=== PATIENT | male | born 1960 | race Caucasian/White ===

== ENCOUNTER 2025-01-04 16:26 | Inpatient (IN) | payer MEDICARE, MEDICAID ==
[~2025-01-04] VITALS: Ht 175.3 cm; Wt 86.4 kg
[~2025-01-04 16:26] MED LIST: BUPR-50 PO; BUSP5TAB20 PO; PANT-31 PO; QUET300T2 PO; TAMS0.4C94 PO
[2025-01-04] MEDS ORDERED: TRAZ-257 PO (17:32)
[2025-01-04] MEDS ORDERED: BUPR-49 PO (17:38)
[2025-01-04] MEDS ORDERED: LOSA-381 PO (17:38)
[2025-01-04] MEDS ORDERED: PANT40TA54 PO (17:38)
[2025-01-04] MEDS ORDERED: BUSP5TAB3 PO (17:38)
[2025-01-04] MEDS: QUEtiapine FUMARATE 100 MG TABLET PO ONE (17:55)
[2025-01-04] MEDS: LORazepam 2 MG TABLET PO ONE (17:55)
[2025-01-04] MEDS: DiphenhydrAMINE HCL 25 MG CAPSULE PO ONE (17:55)
[2025-01-04 18:16] LABS: BASOPHILS % (AUTO) 0.6 % (0.0-2.0); EOSINOPHILS % (AUTO) 3.5 % (1.0-6.0); HEMATOCRIT 43.5 % (41-53); HEMOGLOBIN 14.8 g/dL (13.5-17.5); LYMPHOCYTES # (AUTO) 1.5 K/uL (1.0-4.8); LYMPHOCYTES % (AUTO) 16.9 % (22.0-44.0); MEAN CORPUSCULAR HEMOGLOBIN 30.2 pg (26.0-34.0); MEAN CORPUSCULAR VOLUME 89 fL (80-100); MONOCYTES # (AUTO) 0.7 K/uL (0.1-1.0); MONOCYTES % (AUTO) 8.5 % (2.0-9.0); NEUTROPHILS # (AUTO) 6.1 K/uL (1.8-7.7); NEUTROPHILS % (AUTO) 70.5 % (40.0-70.0); PLATELET COUNT (AUTO) 283 K/uL (150-450); RED BLOOD CELL COUNT(AUTO) 4.89 MIL/uL (4.50-5.90); RED CELL DISTRIBUTION WIDTH 14.5 % (11.5-14.5); WHITE BLOOD COUNT (AUTO) 8.6 K/uL (4.5-11.0)
[2025-01-04 18:18] LABS: CALCIUM, TOTAL 9.5 mg/dL (8.8-10.5); CREATININE 3.17 mg/dL (0.60-1.30); POTASSIUM 3.6 mmol/L (3.5-5.1)
[2025-01-04] MEDS ORDERED: ONDANSETRON HCL 4 MG/2 ML VIAL IVP PRN (19:15)
[2025-01-04] MEDS: SODIUM CHLORIDE 0.9% 2,000 ML IV ONE (20:26)
[2025-01-04] MEDS: DOCUSATE SODIUM 100 MG CAPSULE PO SCH (21:00)
[2025-01-04 21:20] VITALS: BP 126/93; PULSE 84; RESP 20; TEMP 97.5; O2SAT 96
[2025-01-04] MEDS: SODIUM CHLORIDE 0.9% 1,000 ML IV SCH (22:48)
[2025-01-04] MEDS: HEPARIN SODIUM,PORCINE 5,000 UNITS/ML VIAL SQ SCH (23:20)
[2025-01-05] MEDS: RINGERS SOLUTION,LACTATED 500 ML IV ONE (00:18)
[2025-01-05 01:01] LABS: LACTIC ACID 1.3 mmol/L (0.4-2.0)
[2025-01-05] MEDS: PIPERACILLIN SODIUM/TAZOBACTAM 2.25 GM in DEXTROSE 5%-WATER 50 ML IV SCH (01:42)
[2025-01-05 04:30] VITALS: BP 98/69; PULSE 77; RESP 18; TEMP 97.7; O2SAT 97
[2025-01-05 07:21] LABS: BASOPHILS % (AUTO) 0.6 % (0.0-2.0); EOSINOPHILS % (AUTO) 9.4 % (1.0-6.0); HEMATOCRIT 39.2 % (41-53); HEMOGLOBIN 13.1 g/dL (13.5-17.5); LYMPHOCYTES # (AUTO) 1.7 K/uL (1.0-4.8); MEAN CORPUSCULAR HEMOGLOBIN 29.9 pg (26.0-34.0); MEAN CORPUSCULAR HGB CONC 33.3 G/dL (31.0-37.0); MEAN CORPUSCULAR VOLUME 90 fL (80-100); MONOCYTES # (AUTO) 0.6 K/uL (0.1-1.0); MONOCYTES % (AUTO) 10.4 % (2.0-9.0); NEUTROPHILS # (AUTO) 2.8 K/uL (1.8-7.7); NEUTROPHILS % (AUTO) 49.6 % (40.0-70.0); PLATELET COUNT (AUTO) 238 K/uL (150-450); RED BLOOD CELL COUNT(AUTO) 4.38 MIL/uL (4.50-5.90); RED CELL DISTRIBUTION WIDTH 14.3 % (11.5-14.5); WHITE BLOOD COUNT (AUTO) 5.6 K/uL (4.5-11.0)
[2025-01-05 07:26] LABS: CALCIUM, TOTAL 8.3 mg/dL (8.8-10.5); CREATININE 2.04 mg/dL (0.60-1.30); POTASSIUM 3.4 mmol/L (3.5-5.1)
[2025-01-05 08:16] VITALS: BP 129/83; PULSE 81; RESP 18; TEMP 97.8; O2SAT 99
[2025-01-05 09:00] VITALS: BP 125/82; PULSE 85; RESP 16; TEMP 97.7; O2SAT 100
[2025-01-05] MEDS: BuPROPion HCL XL 150 MG ER TABLET PO SCH (12:28)
[2025-01-05] MEDS: BusPIRone HCL 5 MG TABLET PO SCH (16:34)
[2025-01-05 18:48] LABS: CREATININE,URINE RANDOM 199.3 mg/dL (30.0-125.0); PH,URINE DRUG SCREEN 5.5 (5.0-8.0)
[2025-01-05 18:54] LABS: ALCOHOL, URINE DRUG SCREEN NEGATIVE (NEGATIVE); AMPHET/METH SCREEN,URINE POSITIVE (NEGATIVE); BARBITURATE SCREEN, URINE NEGATIVE (NEGATIVE); BENZODIAZEPINES SCREEN,URINE NEGATIVE (NEGATIVE); CANNABINOID SCREEN,URINE NEGATIVE (NEGATIVE); COCAINE SCREEN,URINE NEGATIVE (NEGATIVE); METHADONE SCREEN, URINE NEGATIVE (NEGATIVE); OPIATE SCREEN,URINE NEGATIVE (NEGATIVE); PHENCYCLIDINE SCREEN,URINE NEGATIVE (NEGATIVE)
[2025-01-05 20:09] VITALS: BP 119/78; PULSE 79; RESP 20; TEMP 97.5; O2SAT 97
[2025-01-05] MEDS: TraZODone HCL 100 MG TABLET PO SCH (21:27)
[2025-01-05] MEDS: QUEtiapine FUMARATE 300 MG TABLET PO SCH (21:27)
[2025-01-06 06:08] VITALS: BP 136/81; PULSE 65; RESP 20; TEMP 97.3; O2SAT 95
[2025-01-06 08:02] VITALS: BP 119/80; PULSE 74; RESP 18; TEMP 97.9; O2SAT 96
[2025-01-06] MEDS: MORPHINE SULFATE 2 MG/ML SYRINGE IVP PRN (16:08)
[2025-01-06 19:43] VITALS: BP 113/64; PULSE 78; RESP 18; TEMP 97.7; O2SAT 95
[2025-01-06] MEDS: ACETAMINOPHEN 325 MG TABLET PO PRN (19:54)
[2025-01-06 23:23] VITALS: BP 130/72; PULSE 70; RESP 18; TEMP 97.6; O2SAT 98
[2025-01-07 07:20] LABS: BASOPHILS % (AUTO) 0.9 % (0.0-2.0); EOSINOPHILS % (AUTO) 11.6 % (1.0-6.0); HEMATOCRIT 35.9 % (41-53); HEMOGLOBIN 11.9 g/dL (13.5-17.5); LYMPHOCYTES # (AUTO) 1.9 K/uL (1.0-4.8); LYMPHOCYTES % (AUTO) 46.7 % (22.0-44.0); MEAN CORPUSCULAR HEMOGLOBIN 29.9 pg (26.0-34.0); MEAN CORPUSCULAR HGB CONC 33.2 G/dL (31.0-37.0); MEAN CORPUSCULAR VOLUME 90 fL (80-100); MONOCYTES # (AUTO) 0.5 K/uL (0.1-1.0); NEUTROPHILS # (AUTO) 1.2 K/uL (1.8-7.7); NEUTROPHILS % (AUTO) 29.8 % (40.0-70.0); PLATELET COUNT (AUTO) 216 K/uL (150-450); RED BLOOD CELL COUNT(AUTO) 3.98 MIL/uL (4.50-5.90); RED CELL DISTRIBUTION WIDTH 14.7 % (11.5-14.5); WHITE BLOOD COUNT (AUTO) 4.1 K/uL (4.5-11.0)
[2025-01-07 07:29] LABS: ANION GAP 6 mmol/L (8-16); CALCIUM, TOTAL 8.4 mg/dL (8.8-10.5); CARBON DIOXIDE 27 mmol/L (22-29); CHLORIDE 108 mmol/L (98-107); CREATININE 0.85 mg/dL (0.60-1.30); GLOMERULAR FILTR. RATE CALC > 60 mL/min (>60); GLUCOSE,RANDOM 85 mg/dL (70-110); POTASSIUM 4.1 mmol/L (3.5-5.1); SODIUM SERUM 141 mmol/L (136-145); UREA NITROGEN, BLOOD 27 mg/dL (7-18)
[2025-01-07 07:34] VITALS: BP 110/64; PULSE 66; RESP 18; TEMP 97.5; O2SAT 100
[2025-01-07 15:07] VITALS: BP 138/97; PULSE 61; RESP 18; TEMP 97.7; O2SAT 98
[2025-01-07 20:18] VITALS: BP 147/84; PULSE 66; RESP 20; TEMP 97.5; O2SAT 96
[2025-01-07] MEDS: BENZONATATE 100 MG CAPSULE PO PRN (22:35)
[2025-01-08 04:29] VITALS: BP 142/96; PULSE 75; RESP 18; TEMP 97.9; O2SAT 97
[2025-01-08 07:43] LABS: BASOPHILS % (AUTO) 0.7 % (0.0-2.0); EOSINOPHILS % (AUTO) 8.8 % (1.0-6.0); HEMATOCRIT 38.9 % (41-53); HEMOGLOBIN 12.7 g/dL (13.5-17.5); LYMPHOCYTES # (AUTO) 1.8 K/uL (1.0-4.8); LYMPHOCYTES % (AUTO) 31.9 % (22.0-44.0); MEAN CORPUSCULAR HEMOGLOBIN 29.8 pg (26.0-34.0); MEAN CORPUSCULAR HGB CONC 32.8 G/dL (31.0-37.0); MEAN CORPUSCULAR VOLUME 91 fL (80-100); MONOCYTES # (AUTO) 0.4 K/uL (0.1-1.0); MONOCYTES % (AUTO) 7.4 % (2.0-9.0); NEUTROPHILS # (AUTO) 2.9 K/uL (1.8-7.7); NEUTROPHILS % (AUTO) 51.2 % (40.0-70.0); PLATELET COUNT (AUTO) 234 K/uL (150-450); RED BLOOD CELL COUNT(AUTO) 4.27 MIL/uL (4.50-5.90); RED CELL DISTRIBUTION WIDTH 14.5 % (11.5-14.5); WHITE BLOOD COUNT (AUTO) 5.7 K/uL (4.5-11.0)
[2025-01-08 08:02] LABS: ANION GAP 5 mmol/L (8-16); CALCIUM, TOTAL 8.4 mg/dL (8.8-10.5); CARBON DIOXIDE 26 mmol/L (22-29); CHLORIDE 106 mmol/L (98-107); GLOMERULAR FILTR. RATE CALC > 60 mL/min (>60); GLUCOSE,RANDOM 78 mg/dL (70-110); SODIUM SERUM 137 mmol/L (136-145); UREA NITROGEN, BLOOD 19 mg/dL (7-18)
[2025-01-08 08:11] VITALS: BP 114/74; PULSE 64; RESP 18; TEMP 97.5; O2SAT 92
[2025-01-08] MEDS ORDERED: TRAZ-257 PO (13:38)
[2025-01-08] MEDS ORDERED: AMLO-257 PO (13:38)
[2025-01-08] MEDS ORDERED: BUSP5TAB20 PO (13:38)
[2025-01-08] MEDS ORDERED: BUPR-49 PO (13:38)
[2025-01-08] MEDS ORDERED: TAMS0.4C94 PO (13:38)
[2025-01-08] MEDS ORDERED: QUET300T19 PO (13:38)
[2025-01-08] MEDS ORDERED: AMOX-457 PO (13:38)
[2025-01-08 16:39] VITALS: BP 136/85; PULSE 67; RESP 18; TEMP 98; O2SAT 96
[2025-01-08] MEDS: OxyCODONE HCL/ACETAMINOPHEN 5-325 MG TABLET PO PRN (21:50)
[2025-01-08 22:03] VITALS: BP 148/95; PULSE 67; RESP 18; TEMP 97.5; O2SAT 99
[2025-01-09 04:50] VITALS: BP 111/72; PULSE 64; RESP 19; TEMP 97.5; O2SAT 96
[2025-01-09 07:34] LABS: BASOPHILS % (AUTO) 0.6 % (0.0-2.0); EOSINOPHILS % (AUTO) 9.5 % (1.0-6.0); HEMATOCRIT 37.5 % (41-53); HEMOGLOBIN 12.7 g/dL (13.5-17.5); LYMPHOCYTES # (AUTO) 1.6 K/uL (1.0-4.8); LYMPHOCYTES % (AUTO) 33.3 % (22.0-44.0); MEAN CORPUSCULAR HEMOGLOBIN 30.4 pg (26.0-34.0); MEAN CORPUSCULAR HGB CONC 33.8 G/dL (31.0-37.0); MEAN CORPUSCULAR VOLUME 90 fL (80-100); MONOCYTES # (AUTO) 0.4 K/uL (0.1-1.0); MONOCYTES % (AUTO) 9.2 % (2.0-9.0); NEUTROPHILS # (AUTO) 2.3 K/uL (1.8-7.7); NEUTROPHILS % (AUTO) 47.4 % (40.0-70.0); PLATELET COUNT (AUTO) 243 K/uL (150-450); RED BLOOD CELL COUNT(AUTO) 4.17 MIL/uL (4.50-5.90); RED CELL DISTRIBUTION WIDTH 14.3 % (11.5-14.5); WHITE BLOOD COUNT (AUTO) 4.8 K/uL (4.5-11.0)
[2025-01-09 07:39] LABS: ANION GAP 5 mmol/L (8-16); CALCIUM, TOTAL 8.8 mg/dL (8.8-10.5); CARBON DIOXIDE 27 mmol/L (22-29); CHLORIDE 106 mmol/L (98-107); GLOMERULAR FILTR. RATE CALC > 60 mL/min (>60); GLUCOSE,RANDOM 81 mg/dL (70-110); POTASSIUM 3.7 mmol/L (3.5-5.1); SODIUM SERUM 138 mmol/L (136-145); UREA NITROGEN, BLOOD 18 mg/dL (7-18)
[2025-01-09 08:07] VITALS: BP 113/80; PULSE 62; RESP 20; TEMP 97.5; O2SAT 97
== END 2025-01-09 12:40 | disposition home health service (06) | DRG 91 ==
LOC: EMS 16:28 → EDH 19:06 → 4E 21:20
PROVIDERS: ADMIT Internal Medicine; ATTEND Internal Medicine
DX: G92.9 Unspecified toxic encephalopathy (principal); J69.0 Pneumonitis due to inhalation of food and vomit; J96.01 Acute respiratory failure with hypoxia; L03.90 Cellulitis, unspecified; N17.9 Acute kidney failure, unspecified; M62.82 Rhabdomyolysis; F15.20 Other stimulant dependence, uncomplicated; S20.402A Unspecified superficial injuries of left back wall of thorax, initial encounter; F25.0 Schizoaffective disorder, bipolar type; F41.9 Anxiety disorder, unspecified; G47.00 Insomnia, unspecified; N40.0 Benign prostatic hyperplasia without lower urinary tract symptoms; X58.XXXA Exposure to other specified factors, initial encounter; Y92.89 Other specified places as the place of occurrence of the external cause; Y99.8 Other external cause status; Z91.51 Personal history of suicidal behavior; Y93.89 Activity, other specified; Z79.899 Other long term (current) drug therapy
CPT/HCPCS: 71045; 76770; 80048; 80307; 82550; 82570; 83605; 83735; 84300; 85025; 87040; 99285; G0378; G0480; J1644; J2270; J2543; J7030; J7060; J7120; 36415-L1; 36415-TC

== ENCOUNTER 2025-01-09 15:21 | Inpatient (IN) | payer MEDICARE, MEDICAID ==
[~2025-01-09] VITALS: Ht 172.7 cm; Wt 97.5 kg
[~2025-01-09 15:21] MED LIST changes: +AMLO-257 PO; +AMOX-457 PO; +BUPR-49 PO; -BUPR-50 PO; -PANT-31 PO; +QUET300T19 PO; -QUET300T2 PO; +TRAZ-257 PO
[2025-01-09 16:08] LABS: COVID AG,FIA SOURCE NASAL SWAB
[2025-01-09 16:29] LABS: SARS-COV2 (COVID) ANTIGEN,FIA Negative (Negative)
[2025-01-09 16:35] LABS: CALCIUM, TOTAL 9.3 mg/dL (8.8-10.5); CREATININE 1.06 mg/dL (0.60-1.30); GLOMERULAR FILTR. RATE CALC > 60 mL/min (>60); GLUCOSE,RANDOM 103 mg/dL (70-110); SODIUM SERUM 134 mmol/L (136-145); UREA NITROGEN, BLOOD 21 mg/dL (7-18)
[2025-01-09 17:23] LABS: PLATELET COUNT (AUTO) 252 K/uL (150-450); RED BLOOD CELL COUNT(AUTO) 4.55 MIL/uL (4.50-5.90); RED CELL DISTRIBUTION WIDTH 14.7 % (11.5-14.5); WHITE BLOOD COUNT (AUTO) 6.1 K/uL (4.5-11.0)
[2025-01-09 20:30] LABS: APPEARANCE,URINE CLEAR (CLEAR); GLUCOSE, URINE (UA) 150-200 mg/dL (NEGATIVE); LEUKOCYTE ESTERASE ,URINE NEGATIVE (NEGATIVE); NITRATE,URINE NEGATIVE (NEGATIVE); OCCULT BLOOD,URINE NEGATIVE (NEGATIVE); PH,URINE DRUG SCREEN 6.5 (5.0-8.0); SPECIFIC GRAVITIY, URINE 1.014 (1.003-1.030)
[2025-01-09 20:36] LABS: ALCOHOL, URINE DRUG SCREEN NEGATIVE (NEGATIVE); AMPHET/METH SCREEN,URINE NEGATIVE (NEGATIVE); BARBITURATE SCREEN, URINE NEGATIVE (NEGATIVE); CANNABINOID SCREEN,URINE NEGATIVE (NEGATIVE); COCAINE SCREEN,URINE NEGATIVE (NEGATIVE); METHADONE SCREEN, URINE NEGATIVE (NEGATIVE)
[2025-01-10] VITALS (8 sets, daily range): BP systolic 95–136; BP diastolic 64–90; PULSE 68–78; RESP 16–18; TEMP 97.5–98.3; O2SAT 96–98
[2025-01-10] MEDS: ZOLPIDEM TARTRATE 10 MG TABLET PO PRN (01:35)
[2025-01-10] MEDS ORDERED: DOCUSATE SODIUM 100 MG CAPSULE PO PRN (08:45)
[2025-01-10] MEDS ORDERED: MAG HYDROX/ALUMINUM HYD/SIMETH ES 30 ML SUSPENSION UDCUP PO PRN (08:45)
[2025-01-10] MEDS ORDERED: ONDANSETRON 4 MG TABLET PO PRN (08:45)
[2025-01-10] MEDS ORDERED: BENZOCAINE/MENTHOL [CEPACOL] LOZENGE PO PRN (08:45)
[2025-01-10] MEDS ORDERED: PETROLATUM,WHITE 28 GM JELLY TP PRN (08:45)
[2025-01-10] MEDS ORDERED: ALBUTEROL SULFATE HFA 90 MCG/PUFF 8 GM INHALER IH PRN (08:45)
[2025-01-10] MEDS ORDERED: MAGNESIUM HYDROXIDE SUSPENSION 30 ML UDCUP PO PRN (08:45)
[2025-01-10] MEDS ORDERED: ACETAMINOPHEN 325 MG TABLET PO PRN (08:45)
[2025-01-10] MEDS ORDERED: BACITRACIN 28 GM OINTMENT TP PRN (08:45)
[2025-01-10] MEDS ORDERED: LOPERAMIDE HCL 2 MG CAPSULE PO PRN (08:45)
[2025-01-10] MEDS: TAMSULOSIN HCL 0.4 MG CAPSULE PO SCH (09:35)
[2025-01-10] MEDS: AMOX TR/POT CLAV 875 MG/125 MG TABLET PO SCH (09:35)
[2025-01-10] MEDS: IBUPROFEN 600 MG TABLET PO PRN (09:37)
[2025-01-10] MEDS: BuPROPion HCL XL 150 MG ER TABLET PO SCH (12:16)
[2025-01-11 08:15] VITALS: BP 98/66; PULSE 72; RESP 18; TEMP 98.1; O2SAT 95
[2025-01-11 08:26] VITALS: BP 123/70; PULSE 78; RESP 17; TEMP 98.5; O2SAT 98
[2025-01-11 08:31] LABS: CALCIUM, TOTAL 8.8 mg/dL (8.8-10.5); CREATININE 1.07 mg/dL (0.60-1.30); GLOMERULAR FILTR. RATE CALC > 60 mL/min (>60); GLUCOSE,RANDOM 84 mg/dL (70-110); SODIUM SERUM 137 mmol/L (136-145); UREA NITROGEN, BLOOD 26 mg/dL (7-18)
[2025-01-11 09:09] LABS: CHOL/HDL RATIO 4.4 (4.2-7.3); LDL CHOL (CALC.) 112.0 mg/dL (0-130)
[2025-01-11] MEDS ORDERED: DEXTRAN 70 0.1%/HYPROMELL 0.3% 0.9 ML OPHTHALMIC SOLUTION [PF] OU PRN (21:30)
[2025-01-11 22:26] VITALS: BP 127/82; PULSE 72; RESP 18; TEMP 98.2; O2SAT 96
[2025-01-11] MEDS: LATANOPROST 0.005% 2.5 ML OPHTHALMIC SOLUTION OU SCH (22:29)
[2025-01-11 22:41] VITALS: RESP 18
[2025-01-11] MEDS: HYDROCODONE/ACETAMINOPHEN 5-325 MG TABLET PO PRN (22:41)
[2025-01-11 23:41] VITALS: RESP 18
[2025-01-12 05:42] VITALS: BP 135/90; PULSE 85; RESP 18; TEMP 98.4; O2SAT 98
[2025-01-12 06:53] VITALS: RESP 18
[2025-01-12 08:52] VITALS: BP 125/88; PULSE 71; RESP 16; TEMP 97.1
[2025-01-12] MEDS: DORZOLAMIDE/TIMOLOL 2-0.5% [22.3-6.8MG/ML] 10 ML OPHTHALMIC SOLUTION OU SCH (09:00)
[2025-01-12 12:05] VITALS: BP 130/84; PULSE 80; RESP 20; TEMP 97; O2SAT 96
[2025-01-12 18:21] VITALS: BP 121/79; PULSE 90; RESP 20; TEMP 98; O2SAT 96
[2025-01-12 20:18] VITALS: BP 116/62; PULSE 56; RESP 18; TEMP 98; O2SAT 98
[2025-01-13 01:25] VITALS: BP 120/78; PULSE 70; RESP 19; TEMP 97.6; O2SAT 97
[2025-01-13 02:31] VITALS: RESP 18
[2025-01-13] MEDS: LEVOTHYROXINE SODIUM 25 MCG TABLET PO SCH (06:26)
[2025-01-13 08:49] VITALS: BP 122/69; PULSE 63; RESP 18; TEMP 98.1
[2025-01-13 09:46] VITALS: BP 122/68; PULSE 71; RESP 18; TEMP 97.6
[2025-01-13 20:14] VITALS: BP 120/84; PULSE 85; RESP 18; TEMP 97.9
[2025-01-13 21:08] VITALS: BP 120/84; PULSE 85; RESP 18; TEMP 97.9; O2SAT 95
[2025-01-14] VITALS (8 sets, daily range): BP systolic 101–128; BP diastolic 66–88; PULSE 65–76; RESP 18; TEMP 97.5–98.5; O2SAT 97
[2025-01-15] VITALS (7 sets, daily range): BP systolic 97–153; BP diastolic 64–92; PULSE 60–72; RESP 16–18; TEMP 98–98.3; O2SAT 97–98
[2025-01-16 04:40] VITALS: BP 120/78; PULSE 68; RESP 17; TEMP 97.4; O2SAT 97
[2025-01-16 05:47] VITALS: RESP 18; O2SAT 98
[2025-01-16 17:55] VITALS: BP 117/85; PULSE 70; RESP 18; TEMP 97.3; O2SAT 98
[2025-01-16 20:38] VITALS: BP 110/67; PULSE 61; RESP 18; TEMP 97.2
[2025-01-16 21:38] VITALS: RESP 18
[2025-01-16 22:02] VITALS: BP 100/67; PULSE 67; RESP 17; TEMP 97.1; O2SAT 95
[2025-01-17 04:41] VITALS: BP 105/71; PULSE 73; RESP 18; TEMP 97.5
[2025-01-17 05:41] VITALS: RESP 18
[2025-01-17] MEDS: OMEPRAZOLE 20 MG CAPSULE PO PRN (09:29)
[2025-01-17 12:49] VITALS: BP 118/81; PULSE 80; RESP 17; TEMP 97.7; O2SAT 98
[2025-01-17 20:55] VITALS: BP 116/69; PULSE 61; RESP 16; TEMP 97.6; O2SAT 98
[2025-01-18 01:20] VITALS: BP 120/72; PULSE 75; RESP 16
[2025-01-18 08:15] VITALS: RESP 18
[2025-01-18 10:12] VITALS: BP 115/64; PULSE 67; RESP 18; TEMP 97.9; O2SAT 98
[2025-01-18 15:10] VITALS: BP 114/67; PULSE 64; RESP 18
[2025-01-18 21:00] VITALS: BP 98/73; PULSE 57; RESP 18; TEMP 98.5; O2SAT 99
[2025-01-19 11:00] VITALS: BP 110/64; PULSE 61; RESP 18; TEMP 97.8; O2SAT 98
[2025-01-19 12:00] VITALS: RESP 17
[2025-01-19 12:10] VITALS: BP 121/81; PULSE 65; RESP 18; TEMP 97.6; O2SAT 99
[2025-01-19 21:26] VITALS: RESP 17
[2025-01-19 21:50] VITALS: BP 98/60; PULSE 61; RESP 17; TEMP 98.6; O2SAT 100
[2025-01-19 22:26] VITALS: RESP 17
[2025-01-20 05:31] VITALS: RESP 17
[2025-01-20 06:31] VITALS: RESP 17
[2025-01-20 10:04] VITALS: BP 95/55; PULSE 63; RESP 18; TEMP 97.8; O2SAT 97
[2025-01-20 12:30] VITALS: BP 91/62; PULSE 68; RESP 18; TEMP 98; O2SAT 98
[2025-01-20 21:20] VITALS: BP 104/76; PULSE 58; TEMP 97.3
[2025-01-20 23:50] VITALS: BP 119/74; PULSE 62; RESP 19; TEMP 98; O2SAT 97
[2025-01-21] VITALS (7 sets, daily range): BP systolic 90–126; BP diastolic 65–87; PULSE 62–68; RESP 17–18; TEMP 97.3–98.3; O2SAT 98
[2025-01-22] VITALS (7 sets, daily range): BP systolic 98–126; BP diastolic 70–76; PULSE 64–73; RESP 17–19; TEMP 97.1–98; O2SAT 97–98
[2025-01-23 03:20] VITALS: BP 110/65; PULSE 74; RESP 17; TEMP 97.1; O2SAT 96
[2025-01-23 04:28] VITALS: RESP 18
[2025-01-23 08:40] VITALS: BP 109/85; PULSE 60; RESP 17; TEMP 97.5; O2SAT 95
[2025-01-23 09:28] VITALS: BP 119/78; PULSE 67; RESP 18; TEMP 97.5; O2SAT 96
[2025-01-23 16:32] VITALS: BP 120/73; PULSE 76; RESP 18; TEMP 98.3; O2SAT 97
[2025-01-23 22:26] VITALS: BP 112/68; PULSE 68; RESP 18; TEMP 97.6; O2SAT 97
[2025-01-24] VITALS (7 sets, daily range): BP systolic 109–139; BP diastolic 58–89; PULSE 64–72; RESP 17–20; TEMP 97.3–98.6; O2SAT 96–98
[2025-01-25 11:05] VITALS: BP 103/69; PULSE 60; RESP 18; TEMP 97.7; O2SAT 98
[2025-01-25 12:15] VITALS: BP 120/85; PULSE 65; RESP 18; O2SAT 99
[2025-01-25] MEDS: BACLOFEN 10 MG TABLET PO PRN (14:37)
[2025-01-25 14:38] VITALS: BP 109/81; PULSE 75; RESP 18; O2SAT 98
[2025-01-25 22:10] VITALS: BP 100/61; PULSE 61; RESP 18; O2SAT 99
[2025-01-26 08:20] VITALS: BP 128/79; PULSE 84; RESP 17; TEMP 98; O2SAT 98
[2025-01-26 15:12] VITALS: RESP 16
[2025-01-26 21:44] VITALS: BP 96/62; PULSE 62; RESP 19; TEMP 97.3; O2SAT 96
[2025-01-26 22:00] VITALS: BP 100/68; PULSE 70; RESP 17; TEMP 97.5; O2SAT 98
[2025-01-26 23:01] VITALS: RESP 18
[2025-01-27] VITALS (7 sets, daily range): BP systolic 105–136; BP diastolic 63–91; PULSE 62–99; RESP 17–19; TEMP 97.2–98.2; O2SAT 97–99
[2025-01-28] VITALS (7 sets, daily range): BP systolic 100–144; BP diastolic 57–100; PULSE 57–68; RESP 17–20; TEMP 97.1–98.7; O2SAT 96–99
[2025-01-29 04:51] VITALS: BP 134/88; PULSE 59; RESP 18; TEMP 97.8; O2SAT 97
[2025-01-29 05:54] VITALS: RESP 18
[2025-01-29 10:59] VITALS: BP 118/77; PULSE 68; RESP 19; TEMP 98.2; O2SAT 97
[2025-01-29 17:19] VITALS: BP 126/78; PULSE 74; RESP 18; TEMP 98.1; O2SAT 98
[2025-01-29 22:00] VITALS: BP 93/67; PULSE 82; RESP 18; TEMP 97.3; O2SAT 95
[2025-01-30 01:10] VITALS: BP 116/75; PULSE 78; RESP 18; TEMP 96.8; O2SAT 95
[2025-01-30 09:19] VITALS: BP 126/74; PULSE 64; RESP 18; TEMP 97.1; O2SAT 96
[2025-01-30 15:29] VITALS: BP 120/73; PULSE 74; RESP 18; TEMP 97.9; O2SAT 96
[2025-01-30 21:30] VITALS: BP 122/73; PULSE 67; RESP 18; TEMP 97.3
[2025-01-30 22:30] VITALS: RESP 18
[2025-01-31 03:32] VITALS: BP 119/67; PULSE 75; RESP 18; TEMP 97.5
[2025-01-31 04:32] VITALS: RESP 18
[2025-01-31 08:00] VITALS: BP 104/77; PULSE 61; RESP 18; TEMP 97; O2SAT 98
[2025-01-31 09:56] VITALS: BP 126/74; PULSE 74; RESP 19; TEMP 97; O2SAT 98
[2025-01-31 16:31] VITALS: BP 130/78; PULSE 74; RESP 18; TEMP 98.3; O2SAT 98
[2025-01-31 21:16] VITALS: BP 95/56; PULSE 68; RESP 18; TEMP 97.2; O2SAT 95
[2025-02-01 00:46] VITALS: BP 142/96; PULSE 67; RESP 18; TEMP 97.1; O2SAT 97
[2025-02-01 08:19] VITALS: BP 114/70; PULSE 76; RESP 18; TEMP 97.4; O2SAT 98
[2025-02-01 15:35] VITALS: BP 119/72; PULSE 67; RESP 20; TEMP 98; O2SAT 96
[2025-02-01 21:00] VITALS: BP 97/54; PULSE 54; RESP 18; TEMP 97.2; O2SAT 98
[2025-02-01 21:51] VITALS: BP 108/63; PULSE 71; RESP 18; TEMP 97.5
[2025-02-02] VITALS (7 sets, daily range): BP systolic 96–128; BP diastolic 52–89; PULSE 65–67; RESP 16–18; TEMP 97.6–97.8; O2SAT 98–100
[2025-02-03 01:22] VITALS: BP 113/69; PULSE 60; RESP 17; TEMP 98.2; O2SAT 100
[2025-02-03 02:27] VITALS: RESP 16
[2025-02-03 11:21] VITALS: BP 119/93; PULSE 83; RESP 18; TEMP 98.6; O2SAT 97
[2025-02-03 21:04] VITALS: BP 127/86; PULSE 91; RESP 18; TEMP 98.1
[2025-02-04] VITALS (7 sets, daily range): BP systolic 107–128; BP diastolic 61–82; PULSE 55–81; RESP 18; TEMP 97.1–97.7; O2SAT 97–98
[2025-02-05 01:55] VITALS: BP 125/85; PULSE 75; RESP 19; TEMP 97.4; O2SAT 98
[2025-02-05 02:55] VITALS: RESP 18
[2025-02-05 08:27] VITALS: BP 117/86; PULSE 77; RESP 17; TEMP 97.3; O2SAT 95
[2025-02-05 09:30] VITALS: RESP 18
[2025-02-05 14:51] VITALS: RESP 18
[2025-02-05 15:49] VITALS: RESP 16
[2025-02-05] MEDS ORDERED: LEVO25TA9 PO (15:51)
[2025-02-05] MEDS ORDERED: DORZ10DR10 OU (15:52)
[2025-02-05] MEDS ORDERED: XALA2.5OS OU (15:53)
== END 2025-02-05 17:15 | DRG 885 ==
LOC: EMS 15:21 → 3EX 01-10 00:50 → UNDOADMIN 01-10 00:50
PROVIDERS: ADMIT Psychiatry & Neurology Psychiatry; ATTEND Psychiatry & Neurology Psychiatry
PROC: GZHZZZZ Group Psychotherapy (ICD-10-PCS; principal; 2025-01-10)
DX: F25.1 Schizoaffective disorder, depressive type (principal); F15.20 Other stimulant dependence, uncomplicated; R45.851 Suicidal ideations; I10 Essential (primary) hypertension; N40.0 Benign prostatic hyperplasia without lower urinary tract symptoms; Z20.822 Contact with and (suspected) exposure to COVID-19; E78.5 Hyperlipidemia, unspecified; F41.9 Anxiety disorder, unspecified; F31.9 Bipolar disorder, unspecified; F11.10 Opioid abuse, uncomplicated; T14.8XXA Other injury of unspecified body region, initial encounter; X58.XXXA Exposure to other specified factors, initial encounter; H40.9 Unspecified glaucoma; G47.00 Insomnia, unspecified; K59.00 Constipation, unspecified; Z79.899 Other long term (current) drug therapy; Z91.51 Personal history of suicidal behavior; Z72.0 Tobacco use; Y93.89 Activity, other specified; Y92.89 Other specified places as the place of occurrence of the external cause
CPT/HCPCS: 80048; 80061; 80307; 81001; 84443; 85025; 87081; 99285; G0378; G0480